=== PATIENT | male | born 1940 | race Caucasian/White ===

== ENCOUNTER 2019-10-28 10:06 | Outpatient (CLI) | payer MEDICARE, MEDICAID | END 2019-10-28 23:59 | disposition home or self-care (01) | LOC: CFH 10:06 | PROVIDERS: ATTEND Internal Medicine | DX: E11.622 Type 2 diabetes mellitus with other skin ulcer (principal); L97.112 Non-pressure chronic ulcer of right thigh with fat layer exposed; E11.69 Type 2 diabetes mellitus with other specified complication; M86.451 Chronic osteomyelitis with draining sinus, right femur; I10 Essential (primary) hypertension; B96.5 Pseudomonas (aeruginosa) (mallei) (pseudomallei) as the cause of diseases classified elsewhere; M54.16 Radiculopathy, lumbar region; Z87.828 Personal history of other (healed) physical injury and trauma | CPT/HCPCS: 71046; 97597; G0463 ==

== ENCOUNTER → 2019-10-28 | Outpatient (CLI) | payer MEDICARE, MEDICAID | END | disposition home or self-care (01) | LOC: WOUND 08:22 | PROVIDERS: ATTEND Internal Medicine | DX: E11.622 Type 2 diabetes mellitus with other skin ulcer (principal); L97.112 Non-pressure chronic ulcer of right thigh with fat layer exposed; E11.69 Type 2 diabetes mellitus with other specified complication; M86.451 Chronic osteomyelitis with draining sinus, right femur; B96.5 Pseudomonas (aeruginosa) (mallei) (pseudomallei) as the cause of diseases classified elsewhere; I10 Essential (primary) hypertension; M54.16 Radiculopathy, lumbar region | CPT/HCPCS: 97597; G0463 ==

== ENCOUNTER → 2019-11-03 | Outpatient (CLI) | payer MEDICARE, MEDICAID | END | disposition home or self-care (01) | LOC: WOUND 08:30 | PROVIDERS: ATTEND Nurse Practitioner Family | DX: E11.622 Type 2 diabetes mellitus with other skin ulcer (principal); L97.112 Non-pressure chronic ulcer of right thigh with fat layer exposed; E11.69 Type 2 diabetes mellitus with other specified complication; M86.451 Chronic osteomyelitis with draining sinus, right femur; I10 Essential (primary) hypertension; B96.5 Pseudomonas (aeruginosa) (mallei) (pseudomallei) as the cause of diseases classified elsewhere; M54.16 Radiculopathy, lumbar region; Z87.828 Personal history of other (healed) physical injury and trauma | CPT/HCPCS: 97597 ==

== ENCOUNTER 2019-11-10 08:34 | Outpatient (CLI) | payer MEDICARE, MEDICAID | END 2019-11-10 23:59 | disposition home or self-care (01) | LOC: WOUND 08:34 | PROVIDERS: ATTEND Nurse Practitioner Family | DX: E11.622 Type 2 diabetes mellitus with other skin ulcer (principal); L97.112 Non-pressure chronic ulcer of right thigh with fat layer exposed; E11.69 Type 2 diabetes mellitus with other specified complication; M86.451 Chronic osteomyelitis with draining sinus, right femur; I10 Essential (primary) hypertension; B96.5 Pseudomonas (aeruginosa) (mallei) (pseudomallei) as the cause of diseases classified elsewhere; M54.16 Radiculopathy, lumbar region; Z87.828 Personal history of other (healed) physical injury and trauma | CPT/HCPCS: 99215; G0463 ==